=== PATIENT | female | born 1980 | race Caucasian/White ===

== ENCOUNTER 2017-10-31 17:04 | Inpatient (IN) | payer MEDICAID ==
[~2017-10-31] VITALS: Ht 165.1 cm; Wt 72.2 kg
[2017-10-31 19:01] LABS: Basophils # (auto) 0.1 uL; Eosinophils # (auto) 0.1 uL; Mean Corpuscular Hemoglobin 21.3 pg (28.0-32.0); Monocytes # (auto) 0.8 uL; Red Cell Distribution Width 19.5 % (11.8-14.3)
[2017-10-31 19:03] LABS: Basophils % (auto) 1.2 % (0.0-2.0); Eosinophils % (auto) 1.6 % (0.0-7.0); Hematocrit 33.6 % (36.0-46.0); Hemoglobin 10.3 g/dL (12.2-16.2); Lymphocytes # (auto) 2.6 uL; Lymphocytes % (auto) 34.8 % (10.0-50.0); Mean Corpuscular Hgb Conc. 30.6 g/dL (32.0-36.0); Mean Corpuscular Volume 69.6 fL (80.0-100.0); Monocytes % (auto) 10.6 % (0.0-12.0); Neutrophils # (auto) 3.9 uL; Neutrophils % (auto) 51.8 % (37.0-80.0); Nucleated Red Blood Cells % 0.1 %; Platelet Count (auto) 417 10^3/uL (140-450); Red Blood Cells 4.83 10^6/uL (4.0-5.20); White Blood Cell 7.6 10^3/uL (4.4-10.8)
[2017-10-31 19:22] LABS: BUN/Creatinine Ratio 24.8; Bilirubin, Total 4.5 mg/dL (0.2-1.0); Calcium 8.4 mg/dL (8.5-10.1); Potassium 4.5 mmol/L (3.5-5.1); Total Protein 6.7 g/dL (6.4-8.2)
[2017-11-01] MEDS ORDERED: SODIUM CHLORIDE 0.9% 1,000 ML IV ONE (09:22)
[2017-11-01] MEDS ORDERED: ALBUTEROL SULF 2.5 MG/0.5ML(0.5%) NEB SOLN NEB PRN (09:30)
[2017-11-01] MEDS ORDERED: cefTRIAXone 1GM/10ml IVPUSH 10 ML IV ONE (09:30)
[2017-11-01] MEDS ORDERED: NITROGLYCERIN 0.4 MG SL TAB SL PRN (09:30)
[2017-11-01] MEDS ORDERED: LACTULOSE 20Gm/30ML SOLN PO PRN (09:30)
[2017-11-01] MEDS ORDERED: FUROSEMIDE 40 MG/4 ML VIAL IV ONE (09:30)
[2017-11-01] MEDS ORDERED: PROMETHAZINE HCL 25 MG/ML 1ML IV PRN (09:30)
[2017-11-01] MEDS: FUROSEMIDE 40 MG/4 ML VIAL IV SCH (10:00)
[2017-11-01] MEDS ORDERED: OSELTAMIVIR 75 MG CAP PO ONE (10:15)
[2017-11-01] MEDS: AZITHROMYCIN 500MG/ 250ML 250 ML IV SCH (11:05)
[2017-11-01] MEDS: ASPirin 81 mg TAB PO SCH (11:05)
[2017-11-01] MEDS: POTASSIUM CHL 20 Meq TABLET PO SCH (11:05)
[2017-11-01] MEDS: ENALAPRIL MALEATE 2.5 MG TAB PO SCH (11:06)
[2017-11-01] MEDS: ENOXAPARIN SOD 40 MG/0.4 ML SYRINGE SC SCH (11:06)
[2017-11-01] MEDS: CARVEDILOL 3.125 MG TAB PO SCH ×2 (11:06→22:00)
[2017-11-01] MEDS: ALBUTEROL SULF 2.5 MG/0.5ML(0.5%) NEB SOLN NEB SCH ×2 (11:30→19:00)
[2017-11-01 12:49] LABS: INR 1.59 (0.9-1.15); Partial Thromboplastin Time 31.1 sec (22.64-33.71); Prothrombin Time 17.4 sec (9.37-12.3)
[2017-11-01 14:01] LABS: CRP High Sensitivity 2.45 mg/dL (< 0.3)
[2017-11-01 14:03] LABS: Magnesium 2.2 mg/dL (1.6-2.6)
[2017-11-01] MEDS: SODIUM CHLOR 0.9% PF (SALINE LOCK) 10ML VIAL IV SCH ×2 (14:21→22:21)
[2017-11-01 21:30] VITALS: BP 106/68
[2017-11-01 22:00] VITALS: BP 109/78
[2017-11-01] MEDS ORDERED: OSELTAMIVIR 75 MG CAP PO SCH (22:00)
[2017-11-01 22:12] LABS: Urine Bacteria FEW /hpf (None Seen); Urine Blood Negative /uL (Negative); Urine Specific Gravity 1.012 (1.001-1.035); Urine WBC 2 /hpf (0 - 5)
[2017-11-01 22:14] LABS: Alcohol, Urine < 3.0 mg/dL (0-5); Amphetamine Screen, Urine POSITIVE (NEGATIVE); Barbiturate Scree,Urine NEGATIVE (NEGATIVE); Benzodiazephine Screen, Urine NEGATIVE (NEGATIVE); Cannabinoid Screen, Urine NEGATIVE (NEGATIVE); Cocaine Screen, Urine NEGATIVE (NEGATIVE); Opiate Scree,Urine NEGATIVE (NEGATIVE); Phencyclidine Screen, Urine NEGATIVE (NEGATIVE)
[2017-11-01] MEDS: TEMAZEPAM 15 MG CAP PO PRN (22:33)
[2017-11-01] MEDS: LORazepam 0.5 MG TAB PO PRN (23:44)
[2017-11-02] MEDS: ALBUTEROL SULF 2.5 MG/0.5ML(0.5%) NEB SOLN NEB SCH ×4 (00:25→19:46)
[2017-11-02 05:00] VITALS: BP 124/92
[2017-11-02] MEDS: SODIUM CHLOR 0.9% PF (SALINE LOCK) 10ML VIAL IV SCH ×3 (05:49→21:54)
[2017-11-02 08:00] VITALS: BP 131/100
[2017-11-02 09:00] VITALS: BP 131/100
[2017-11-02 09:17] LABS: Hepatitis B Surface Antibody Positive
[2017-11-02 09:29] LABS: Hepatitis B Surface Antigen Negative (Negative)
[2017-11-02] MEDS: MORPHINE SULFATE 4 MG/ML SYR/VIAL IV PRN ×2 (09:50→19:36)
[2017-11-02 09:55] LABS: Hepatitis A Total Antibody Negative; Hepatitis C Antibody Negative (Negative)
[2017-11-02 09:56] LABS: Hepatitis B Core Total AB Negative
[2017-11-02] MEDS: CARVEDILOL 3.125 MG TAB PO SCH (09:59)
[2017-11-02] MEDS: ENALAPRIL MALEATE 2.5 MG TAB PO SCH (10:00)
[2017-11-02] MEDS: ASPirin 81 mg TAB PO SCH (10:03)
[2017-11-02] MEDS: ENOXAPARIN SOD 40 MG/0.4 ML SYRINGE SC SCH (10:04)
[2017-11-02] MEDS: POTASSIUM CHL 20 Meq TABLET PO SCH (10:04)
[2017-11-02] MEDS: AZITHROMYCIN 500MG/ 250ML 250 ML IV SCH (10:05)
[2017-11-02] MEDS: FUROSEMIDE 40 MG/4 ML VIAL IV SCH (10:06)
[2017-11-02] MEDS: cefTRIAXone 1GM/10ml IVPUSH 10 ML IV SCH (10:07)
[2017-11-02] MEDS ORDERED: SPIRONOLACTONE 25 MG TAB PO ONE (11:00)
[2017-11-02 11:33] VITALS: BP 132/93
[2017-11-02 12:55] LABS: Basophils % (auto) 0.8 % (0.0-2.0); Eosinophils # (auto) 0.2 uL; Monocytes # (auto) 0.6 uL; Neutrophils # (auto) 2.9 uL; Nucleated Red Blood Cells % 0.1 %; White Blood Cell 6.6 10^3/uL (4.4-10.8)
[2017-11-02 12:56] LABS: Basophils # (auto) 0 uL; Eosinophils % (auto) 3.4 % (0.0-7.0); Hematocrit 32.7 % (36.0-46.0); Hemoglobin 9.9 g/dL (12.2-16.2); Lymphocytes # (auto) 2.9 uL; Lymphocytes % (auto) 43.5 % (10.0-50.0); Mean Corpuscular Hgb Conc. 30.3 g/dL (32.0-36.0); Mean Corpuscular Volume 69.3 fL (80.0-100.0); Monocytes % (auto) 9.1 % (0.0-12.0); Neutrophils % (auto) 43.2 % (37.0-80.0); Platelet Count (auto) 414 10^3/uL (140-450); Red Blood Cells 4.72 10^6/uL (4.0-5.20); Red Cell Distribution Width 19.4 % (11.8-14.3)
[2017-11-02 13:13] LABS: Cholesterol 70 mg/dL (< 200); HDL Cholesterol 15 mg/dL (40-59); LDL Cholesterol 58 mg/dL (< 100); Triglycerides 63 mg/dL (< 150)
[2017-11-02] MEDS: DOBUTamine 1000MCG/ML 250 ML IV SCH (15:33)
[2017-11-02 17:27] VITALS: BP 116/81
[2017-11-02] MEDS: SPIRONOLACTONE 25 MG TAB PO SCH (18:25)
[2017-11-02 19:49] VITALS: BP 133/86
[2017-11-02] MEDS ORDERED: diphenhdrAMINE HCL 25 MG CAP PO ONE (21:15)
[2017-11-02] MEDS: LORazepam 0.5 MG TAB PO PRN (22:42)
[2017-11-03] VITALS (9 sets, daily range): BP systolic 110–128; BP diastolic 70–85
[2017-11-03] MEDS: ALBUTEROL SULF 2.5 MG/0.5ML(0.5%) NEB SOLN NEB SCH ×2 (00:40→06:27)
[2017-11-03] MEDS: SODIUM CHLOR 0.9% PF (SALINE LOCK) 10ML VIAL IV SCH ×3 (05:47→21:35)
[2017-11-03] MEDS: SPIRONOLACTONE 25 MG TAB PO SCH ×2 (05:48→18:33)
[2017-11-03 08:43] LABS: Monocytes # (auto) 0.4 uL; Neutrophils # (auto) 2.4 uL
[2017-11-03 08:45] LABS: Mean Corpuscular Hemoglobin 21.2 pg (28.0-32.0)
[2017-11-03 08:49] LABS: Eosinophils # (auto) 0.3 uL
[2017-11-03 08:54] LABS: Basophils # (auto) 0 uL; Basophils % (auto) 0.8 % (0.0-2.0); Eosinophils % (auto) 5.5 % (0.0-7.0); Hematocrit 31.4 % (36.0-46.0); Hemoglobin 9.6 g/dL (12.2-16.2); Lymphocytes % (auto) 48.6 % (10.0-50.0); Mean Corpuscular Hgb Conc. 30.7 g/dL (32.0-36.0); Mean Corpuscular Volume 69.3 fL (80.0-100.0); Monocytes % (auto) 7.1 % (0.0-12.0); Platelet Count (auto) 329 10^3/uL (140-450); Red Blood Cells 4.53 10^6/uL (4.0-5.20); Red Cell Distribution Width 19.8 % (11.8-14.3); White Blood Cell 6.2 10^3/uL (4.4-10.8)
[2017-11-03 09:04] LABS: Albumin 2.9 g/dL (3.4-5.0); Potassium 3.9 mmol/L (3.5-5.1)
[2017-11-03 09:06] LABS: Bilirubin, Total 1.4 mg/dL (0.2-1.0); Total Protein 6.5 g/dL (6.4-8.2)
[2017-11-03] MEDS: cefTRIAXone 1GM/10ml IVPUSH 10 ML IV SCH (09:12)
[2017-11-03] MEDS: MORPHINE SULFATE 4 MG/ML SYR/VIAL IV PRN ×3 (10:33→23:23)
[2017-11-03] MEDS: FUROSEMIDE 40 MG/4 ML VIAL IV SCH (10:34)
[2017-11-03] MEDS: ENOXAPARIN SOD 40 MG/0.4 ML SYRINGE SC SCH (10:35)
[2017-11-03] MEDS: ENALAPRIL MALEATE 2.5 MG TAB PO SCH ×2 (10:37→21:35)
[2017-11-03] MEDS: ASPirin 81 mg TAB PO SCH (10:37)
[2017-11-03] MEDS: DIGOXIN 0.25 MG TAB PO SCH (10:37)
[2017-11-03] MEDS: POTASSIUM CHL 20 Meq TABLET PO SCH (10:37)
[2017-11-03] MEDS: NITROGLYCERIN 50MG/250ML 250 ML IV SCH ×2 (10:39→10:46)
[2017-11-03] MEDS: DOBUTamine 1000MCG/ML 250 ML IV SCH (10:40)
[2017-11-03] MEDS ORDERED: diphenhdrAMINE HCL 50 MG/1 ML VL IM ONE (17:30)
[2017-11-03] MEDS: diphenhdrAMINE HCL 25 MG CAP PO PRN (21:31)
[2017-11-04] VITALS: BP 118/55
[2017-11-04] MEDS: diphenhdrAMINE HCL 25 MG CAP PO PRN ×3 (03:49→21:09)
[2017-11-04 04:00] VITALS: BP 110/64
[2017-11-04] MEDS: SODIUM CHLOR 0.9% PF (SALINE LOCK) 10ML VIAL IV SCH ×3 (06:01→21:55)
[2017-11-04 06:02] LABS: Hematocrit 28.1 % (36.0-46.0); Hemoglobin 8.6 g/dL (12.2-16.2); Mean Corpuscular Hemoglobin 21.3 pg (28.0-32.0); Mean Corpuscular Hgb Conc. 30.5 g/dL (32.0-36.0); Mean Corpuscular Volume 69.6 fL (80.0-100.0); Platelet Count (auto) 295 10^3/uL (140-450); Red Blood Cells 4.04 10^6/uL (4.0-5.20); Red Cell Distribution Width 19.8 % (11.8-14.3)
[2017-11-04] MEDS: SPIRONOLACTONE 25 MG TAB PO SCH ×2 (06:02→18:50)
[2017-11-04 06:11] LABS: Band Neutrophils % (manual) 0; Basophils % (manual) 0 (0.0-2.0); Blast Cells 0; Metamyelocytes % 0; Myelocytes % 0; Promyelocytes % 0; Reactive Lymphocytes 0
[2017-11-04 06:30] LABS: Albumin 2.5 g/dL (3.4-5.0); Calcium 7.9 mg/dL (8.5-10.1); Potassium 4.6 mmol/L (3.5-5.1); Total Protein 5.9 g/dL (6.4-8.2)
[2017-11-04 06:58] LABS: Eosinophils % (manual) 10 (0-7); Lymphocytes % (manual) 28 (10.0-50.0); Monocytes % (manual) 1 (0-12)
[2017-11-04] MEDS: DOBUTamine 1000MCG/ML 250 ML IV SCH (07:39)
[2017-11-04 08:00] VITALS: BP 111/65
[2017-11-04] MEDS: MORPHINE SULFATE 4 MG/ML SYR/VIAL IV PRN ×3 (08:02→21:19)
[2017-11-04] MEDS: ASPirin 81 mg TAB PO SCH (10:38)
[2017-11-04] MEDS: FUROSEMIDE 40 MG/4 ML VIAL IV SCH (10:38)
[2017-11-04] MEDS: DIGOXIN 0.25 MG TAB PO SCH (10:38)
[2017-11-04] MEDS: POTASSIUM CHL 20 Meq TABLET PO SCH (10:38)
[2017-11-04] MEDS: ENALAPRIL MALEATE 2.5 MG TAB PO SCH (10:39)
[2017-11-04] MEDS: ENOXAPARIN SOD 40 MG/0.4 ML SYRINGE SC SCH (10:39)
[2017-11-04 12:00] VITALS: BP 104/72
[2017-11-04 13:56] LABS: Alcohol, Urine < 3.0 mg/dL (0-5); Amphetamine Screen, Urine NEGATIVE (NEGATIVE); Barbiturate Scree,Urine NEGATIVE (NEGATIVE); Benzodiazephine Screen, Urine NEGATIVE (NEGATIVE); Cannabinoid Screen, Urine NEGATIVE (NEGATIVE); Cocaine Screen, Urine NEGATIVE (NEGATIVE); Opiate Scree,Urine POSITIVE (NEGATIVE); Phencyclidine Screen, Urine NEGATIVE (NEGATIVE)
[2017-11-04] MEDS ORDERED: ACETAMINOPHEN 500 MG TAB PO ONE ×2 (16:21→17:00)
[2017-11-04 16:31] VITALS: BP 113/72
[2017-11-04] MEDS ORDERED: ACETAMINOPHEN 500 MG TAB PO PRN (17:00)
[2017-11-04 20:08] VITALS: BP 117/74
[2017-11-05] VITALS: BP 114/74
[2017-11-05] MEDS: TEMAZEPAM 15 MG CAP PO PRN ×2 (00:16→22:29)
[2017-11-05 04:00] VITALS: BP 112/64
[2017-11-05] MEDS: SODIUM CHLOR 0.9% PF (SALINE LOCK) 10ML VIAL IV SCH ×4 (06:11→22:16)
[2017-11-05] MEDS: SPIRONOLACTONE 25 MG TAB PO SCH ×2 (06:11→17:31)
[2017-11-05 08:00] VITALS: BP 116/66
[2017-11-05] MEDS: MORPHINE SULFATE 4 MG/ML SYR/VIAL IV PRN ×2 (08:43→18:36)
[2017-11-05] MEDS: diphenhdrAMINE HCL 25 MG CAP PO PRN (08:44)
[2017-11-05] MEDS: ASPirin 81 mg TAB PO SCH (10:21)
[2017-11-05] MEDS: FUROSEMIDE 40 MG/4 ML VIAL IV SCH (10:21)
[2017-11-05] MEDS: DIGOXIN 0.25 MG TAB PO SCH (10:21)
[2017-11-05] MEDS: POTASSIUM CHL 20 Meq TABLET PO SCH (10:21)
[2017-11-05] MEDS: ENOXAPARIN SOD 40 MG/0.4 ML SYRINGE SC SCH (10:22)
[2017-11-05 10:57] LABS: Basophils # (auto) 0.1 uL; Hemoglobin 10.1 g/dL (12.2-16.2); Monocytes # (auto) 0.7 uL; Neutrophils # (auto) 2.5 uL; White Blood Cell 6.2 10^3/uL (4.4-10.8)
[2017-11-05 10:58] LABS: Basophils % (auto) 1.3 % (0.0-2.0); Eosinophils # (auto) 0.5 uL; Eosinophils % (auto) 8.5 % (0.0-7.0); Hematocrit 33.4 % (36.0-46.0); Lymphocytes # (auto) 2.4 uL; Lymphocytes % (auto) 38.9 % (10.0-50.0); Mean Corpuscular Hgb Conc. 30.2 g/dL (32.0-36.0); Mean Corpuscular Volume 69.5 fL (80.0-100.0); Monocytes % (auto) 10.5 % (0.0-12.0); Neutrophils % (auto) 40.8 % (37.0-80.0); Platelet Count (auto) 385 10^3/uL (140-450)
[2017-11-05 11:00] LABS: Red Cell Distribution Width 20.1 % (11.8-14.3)
[2017-11-05 11:20] LABS: Albumin 2.9 g/dL (3.4-5.0); BUN/Creatinine Ratio 15.1; Bilirubin, Total 0.9 mg/dL (0.2-1.0); Calcium 8.4 mg/dL (8.5-10.1); Potassium 4.9 mmol/L (3.5-5.1); Total Protein 6.9 g/dL (6.4-8.2)
[2017-11-05 11:53] VITALS: BP 114/72
[2017-11-05] MEDS ORDERED: LIDOCAINE 1% HCL (LOCAL ANESTH.) INJ 20ML MDV ID ONE (15:30)
[2017-11-05 16:55] VITALS: BP 108/79
[2017-11-05 22:10] VITALS: BP 136/77
[2017-11-06 05:27] VITALS: BP 102/66
[2017-11-06 05:36] LABS: Basophils # (auto) 0.1 uL; Eosinophils # (auto) 0.4 uL
[2017-11-06] MEDS: SPIRONOLACTONE 25 MG TAB PO SCH ×2 (05:36→18:00)
[2017-11-06] MEDS: SODIUM CHLOR 0.9% PF (SALINE LOCK) 10ML VIAL IV SCH ×5 (05:37→22:26)
[2017-11-06 05:39] LABS: Basophils % (auto) 1.2 % (0.0-2.0); Eosinophils % (auto) 6.7 % (0.0-7.0); Hematocrit 29.6 % (36.0-46.0); Lymphocytes # (auto) 2.2 uL; Lymphocytes % (auto) 33.8 % (10.0-50.0); Mean Corpuscular Hemoglobin 21.2 pg (28.0-32.0); Mean Corpuscular Hgb Conc. 30.5 g/dL (32.0-36.0); Mean Corpuscular Volume 69.5 fL (80.0-100.0); Monocytes # (auto) 0.6 uL; Neutrophils # (auto) 3.3 uL; Neutrophils % (auto) 49.3 % (37.0-80.0); Platelet Count (auto) 335 10^3/uL (140-450); Red Blood Cells 4.25 10^6/uL (4.0-5.20); Red Cell Distribution Width 19.8 % (11.8-14.3); White Blood Cell 6.6 10^3/uL (4.4-10.8)
[2017-11-06 05:58] LABS: Potassium 4.2 mmol/L (3.5-5.1)
[2017-11-06 06:02] LABS: Albumin 2.6 g/dL (3.4-5.0); BUN/Creatinine Ratio 22.5
[2017-11-06 06:05] LABS: Bilirubin, Total 0.6 mg/dL (0.2-1.0)
[2017-11-06] MEDS: MORPHINE SULFATE 4 MG/ML SYR/VIAL IV PRN ×4 (06:28→20:17)
[2017-11-06 07:59] VITALS: BP 129/71
[2017-11-06 08:16] LABS: Partial Thromboplastin Time 21.5 sec (22.64-33.71); Prothrombin Time 10.9 sec (9.37-12.3)
[2017-11-06] MEDS: HYDROcodone-ACET 10/325MG TAB PO PRN ×3 (08:25→18:01)
[2017-11-06 08:38] LABS: Alcohol, Urine < 3.0 mg/dL (0-5); Amphetamine Screen, Urine NEGATIVE (NEGATIVE); Barbiturate Scree,Urine NEGATIVE (NEGATIVE); Benzodiazephine Screen, Urine NEGATIVE (NEGATIVE); Cannabinoid Screen, Urine NEGATIVE (NEGATIVE); Cocaine Screen, Urine NEGATIVE (NEGATIVE); Opiate Scree,Urine POSITIVE (NEGATIVE); Phencyclidine Screen, Urine NEGATIVE (NEGATIVE)
[2017-11-06] MEDS: POTASSIUM CHL 20 Meq TABLET PO SCH (10:00)
[2017-11-06] MEDS ORDERED: LIDOCAINE 2%HCL (LOCAL ANESTH.) INJ 20ML MDV ONE (10:58)
[2017-11-06] MEDS ORDERED: IOHEXOL 350 MG/ML 100ML IJ ONE ×2 (10:58→11:25)
[2017-11-06 12:00] VITALS: BP 134/72
[2017-11-06] MEDS: FUROSEMIDE 40 MG/4 ML VIAL IV SCH (14:32)
[2017-11-06] MEDS: ENOXAPARIN SOD 40 MG/0.4 ML SYRINGE SC SCH (14:32)
[2017-11-06] MEDS: LISINOPRIL 5 MG TAB PO SCH (14:33)
[2017-11-06] MEDS: CARVEDILOL 3.125 MG TAB PO SCH ×2 (14:34→22:26)
[2017-11-06] MEDS: DIGOXIN 0.25 MG TAB PO SCH (14:35)
[2017-11-06] MEDS: ASPirin 81 mg TAB PO SCH (14:35)
[2017-11-06 17:00] VITALS: BP 120/82
[2017-11-06 22:00] VITALS: BP 106/72
[2017-11-07 05:07] VITALS: BP 96/50
[2017-11-07] MEDS: SPIRONOLACTONE 25 MG TAB PO SCH ×2 (05:47→18:12)
[2017-11-07] MEDS: SODIUM CHLOR 0.9% PF (SALINE LOCK) 10ML VIAL IV SCH ×5 (05:47→21:46)
[2017-11-07 07:11] LABS: Basophils # (auto) 0.1 uL; Hemoglobin 9.9 g/dL (12.2-16.2); Lymphocytes # (auto) 2.3 uL
[2017-11-07 07:13] LABS: Basophils % (auto) 1.8 % (0.0-2.0); Eosinophils # (auto) 0.4 uL; Eosinophils % (auto) 5.7 % (0.0-7.0); Hematocrit 32.9 % (36.0-46.0); Lymphocytes % (auto) 36.7 % (10.0-50.0); Mean Corpuscular Hemoglobin 20.8 pg (28.0-32.0); Mean Corpuscular Volume 69.3 fL (80.0-100.0); Monocytes # (auto) 0.7 uL; Monocytes % (auto) 10.8 % (0.0-12.0); Neutrophils # (auto) 2.8 uL; Nucleated Red Blood Cells % 0.1 %; Platelet Count (auto) 353 10^3/uL (140-450); Red Blood Cells 4.76 10^6/uL (4.0-5.20); Red Cell Distribution Width 19.7 % (11.8-14.3); White Blood Cell 6.2 10^3/uL (4.4-10.8)
[2017-11-07] MEDS: HYDROcodone-ACET 10/325MG TAB PO PRN ×4 (07:23→18:13)
[2017-11-07 07:37] LABS: Albumin 2.7 g/dL (3.4-5.0); BUN/Creatinine Ratio 23.5; Bilirubin, Total 0.7 mg/dL (0.2-1.0); Calcium 8.4 mg/dL (8.5-10.1); Potassium 4.6 mmol/L (3.5-5.1); Total Protein 6.8 g/dL (6.4-8.2)
[2017-11-07 08:00] VITALS: BP 117/72
[2017-11-07] MEDS ORDERED: CARVEDILOL 3.125 MG TAB PO ONE (08:00)
[2017-11-07] MEDS: MORPHINE SULFATE 4 MG/ML SYR/VIAL IV PRN ×4 (08:02→21:48)
[2017-11-07 12:09] VITALS: BP 106/73
[2017-11-07] MEDS ORDERED: METOPROLOL TARTRATE 1MG/1ML-5ML VIAL IV ONE (14:08)
[2017-11-07] MEDS ORDERED: NITROGLYCERIN 0.4 MG SL TAB SL ONE (14:08)
[2017-11-07 16:16] VITALS: BP 108/50
[2017-11-07] MEDS: FUROSEMIDE 40 MG/4 ML VIAL IV SCH (16:45)
[2017-11-07] MEDS: ASPirin 81 mg TAB PO SCH (16:45)
[2017-11-07] MEDS: CARVEDILOL 3.125 MG TAB PO SCH ×2 (16:46→21:47)
[2017-11-07] MEDS: POTASSIUM CHL 20 Meq TABLET PO SCH (16:47)
[2017-11-07] MEDS: DIGOXIN 0.25 MG TAB PO SCH (16:47)
[2017-11-07] MEDS: ENOXAPARIN SOD 40 MG/0.4 ML SYRINGE SC SCH (16:48)
[2017-11-07] MEDS: LISINOPRIL 5 MG TAB PO SCH (16:48)
[2017-11-07 22:00] VITALS: BP 96/56
[2017-11-08 05:31] VITALS: BP 105/68
[2017-11-08] MEDS: SODIUM CHLOR 0.9% PF (SALINE LOCK) 10ML VIAL IV SCH ×5 (05:44→21:18)
[2017-11-08] MEDS: SPIRONOLACTONE 25 MG TAB PO SCH ×2 (05:47→18:04)
[2017-11-08] MEDS: ASPirin 81 mg TAB PO SCH (08:43)
[2017-11-08] MEDS: HYDROcodone-ACET 10/325MG TAB PO PRN (08:43)
[2017-11-08] MEDS: POTASSIUM CHL 20 Meq TABLET PO SCH (08:43)
[2017-11-08] MEDS: DIGOXIN 0.25 MG TAB PO SCH (08:44)
[2017-11-08] MEDS: CARVEDILOL 3.125 MG TAB PO SCH ×2 (08:45→21:21)
[2017-11-08] MEDS: FUROSEMIDE 40 MG/4 ML VIAL IV SCH (08:46)
[2017-11-08] MEDS: ENOXAPARIN SOD 40 MG/0.4 ML SYRINGE SC SCH (08:47)
[2017-11-08] MEDS: LISINOPRIL 5 MG TAB PO SCH (08:47)
[2017-11-08 09:00] VITALS: BP 99/58
[2017-11-08] MEDS: MORPHINE SULFATE 4 MG/ML SYR/VIAL IV PRN ×2 (10:41→19:37)
[2017-11-08 12:53] VITALS: BP 124/57
[2017-11-08 15:00] VITALS: BP 108/60
[2017-11-08 17:00] VITALS: BP 115/70
[2017-11-09 05:00] VITALS: BP 107/62
[2017-11-09] MEDS: SODIUM CHLOR 0.9% PF (SALINE LOCK) 10ML VIAL IV SCH ×5 (05:08→22:00)
[2017-11-09] MEDS: SPIRONOLACTONE 25 MG TAB PO SCH ×2 (05:09→17:59)
[2017-11-09] MEDS: MORPHINE SULFATE 4 MG/ML SYR/VIAL IV PRN ×3 (05:32→20:26)
[2017-11-09 05:42] LABS: Hematocrit 34.3 % (36.0-46.0); Red Cell Distribution Width 19.7 % (11.8-14.3)
[2017-11-09 05:45] LABS: Basophils # (auto) 0.6 uL; Basophils % (auto) 9.9 % (0.0-2.0); Eosinophils # (auto) 0.4 uL; Hemoglobin 10.8 g/dL (12.2-16.2); Lymphocytes # (auto) 2.4 uL; Lymphocytes % (auto) 41.1 % (10.0-50.0); Mean Corpuscular Hemoglobin 21.5 pg (28.0-32.0); Mean Corpuscular Hgb Conc. 31.4 g/dL (32.0-36.0); Mean Corpuscular Volume 68.4 fL (80.0-100.0); Monocytes # (auto) 0.6 uL; Monocytes % (auto) 9.9 % (0.0-12.0); Neutrophils % (auto) 33.1 % (37.0-80.0); Nucleated Red Blood Cells % 0.2 %; Platelet Count (auto) 149 10^3/uL (140-450); Red Blood Cells 5.02 10^6/uL (4.0-5.20); White Blood Cell 5.9 10^3/uL (4.4-10.8)
[2017-11-09 06:06] LABS: Albumin 3.1 g/dL (3.4-5.0); BUN/Creatinine Ratio 27.9; Bilirubin, Total 0.9 mg/dL (0.2-1.0); Calcium 8.5 mg/dL (8.5-10.1); Potassium 4.6 mmol/L (3.5-5.1); Total Protein 7.5 g/dL (6.4-8.2)
[2017-11-09 09:00] VITALS: BP_SYST 107; BP_SYST 152; BP_DIAS 69; BP_DIAS 84
[2017-11-09] MEDS: CARVEDILOL 3.125 MG TAB PO SCH ×3 (09:25→22:44)
[2017-11-09] MEDS: POTASSIUM CHL 20 Meq TABLET PO SCH (09:25)
[2017-11-09] MEDS: DIGOXIN 0.25 MG TAB PO SCH (09:25)
[2017-11-09] MEDS: FUROSEMIDE 40 MG/4 ML VIAL IV SCH (09:26)
[2017-11-09] MEDS: ASPirin 81 mg TAB PO SCH (09:26)
[2017-11-09] MEDS: LISINOPRIL 5 MG TAB PO SCH (09:26)
[2017-11-09] MEDS: ENOXAPARIN SOD 40 MG/0.4 ML SYRINGE SC SCH (09:26)
[2017-11-09 12:08] VITALS: BP 107/73
[2017-11-09 17:03] VITALS: BP 104/66
[2017-11-09 22:00] VITALS: BP 108/68
[2017-11-10 05:00] VITALS: BP 111/74
[2017-11-10] MEDS: SODIUM CHLOR 0.9% PF (SALINE LOCK) 10ML VIAL IV SCH ×5 (06:00→22:00)
[2017-11-10] MEDS: SPIRONOLACTONE 25 MG TAB PO SCH ×2 (07:15→18:33)
[2017-11-10] MEDS: CARVEDILOL 3.125 MG TAB PO SCH ×2 (08:20→22:34)
[2017-11-10] MEDS: DIGOXIN 0.25 MG TAB PO SCH (08:22)
[2017-11-10] MEDS: POTASSIUM CHL 20 Meq TABLET PO SCH (08:22)
[2017-11-10] MEDS: ASPirin 81 mg TAB PO SCH (08:22)
[2017-11-10] MEDS: MORPHINE SULFATE 4 MG/ML SYR/VIAL IV PRN ×5 (08:28→22:33)
[2017-11-10 09:00] VITALS: BP 104/65
[2017-11-10] MEDS ORDERED: LISINOPRIL 5 MG TAB PO SCH (10:00)
[2017-11-10] MEDS ORDERED: MORPHINE SULFATE 4 MG/ML SYR/VIAL IV PRN (12:00)
[2017-11-10 13:00] VITALS: BP 108/63
[2017-11-10 17:00] VITALS: BP 99/59
[2017-11-10 21:41] VITALS: BP 107/63
[2017-11-11 04:33] VITALS: BP 110/55
[2017-11-11] MEDS: SODIUM CHLOR 0.9% PF (SALINE LOCK) 10ML VIAL IV SCH (06:02)
[2017-11-11] MEDS: SPIRONOLACTONE 25 MG TAB PO SCH (06:02)
[2017-11-11] MEDS: HYDROcodone-ACET 10/325MG TAB PO PRN (08:39)
== END 2017-11-11 09:15 | disposition home or self-care (01) | DRG 194 ==
LOC: ER 17:07 → TELE 17:08 → ER 23:22 → TELE-WESTW 11-01 18:38 → DOU IN ICU 11-02 17:50 → TELE-CENTR 11-05 12:34
PROVIDERS: ADMIT Internal Medicine; ATTEND Internal Medicine
PROC: 02HV33Z Insertion of Infusion Device into Superior Vena Cava, Percutaneous Approach (ICD-10-PCS; principal; 2017-11-05)
DX: I50.23 Acute on chronic systolic (congestive) heart failure (principal); Z76.82 Awaiting organ transplant status; J18.9 Pneumonia, unspecified organism; I42.0 Dilated cardiomyopathy; K76.1 Chronic passive congestion of liver; B33.24 Viral cardiomyopathy; D64.9 Anemia, unspecified; G40.909 Epilepsy, unspecified, not intractable, without status epilepticus; I34.0 Nonrheumatic mitral (valve) insufficiency; J98.11 Atelectasis; M54.9 Dorsalgia, unspecified; Z79.82 Long term (current) use of aspirin; Z82.49 Family history of ischemic heart disease and other diseases of the circulatory system; Z79.899 Other long term (current) drug therapy
CPT/HCPCS: 36415; 36569; 36600; 71045; 71046; 74176; 76705; 80053; 80061; 80307; 81001; 82150; 82378; 82550; 82805; 83520; 83690; 83735; 83880; 84443; 84484; 84702; 85007; 85025; 85027; 85379; 85610; 85613; 85652; 85670; 85705; 85730; 85732; 86038; 86141; 86200; 86225; 86235; 86256; 86431; 86658; 86704; 86706; 86708; 86803; 86850; 86900; 86901; 87081; 87340; 87804; 93005; 93306; 94640; 94761; 96361; 96374